=== PATIENT | female | born 1990 | race Caucasian/White ===

== ENCOUNTER 2019-07-18 18:55 | Emergency (ER) | payer BC ==
[2019-07-18] MEDS: LIDOCAINE/MYLANTA 40 ML BTL PO (20:52)
[2019-07-18 20:56] LABS: ADD UMIC YES; UR ASCORBIC ACID NEGATIVE (NEGATIVE); UR BACTERIA MODERATE /HPF (NONE SEEN); UR BILIRUBIN (Dip) NEGATIVE (NEGATIVE); UR BLOOD (Dip) NEGATIVE (NEGATIVE); UR CLARITY SLIGHTLY CLOUDY (CLEAR); UR COLOR STRAW (YELLOW); UR GLUCOSE (Dip) NEGATIVE (NEGATIVE); UR KETONES (Dip) NEGATIVE (NEGATIVE); UR LEUKOCYTE ESTERASE (Dip) 2+ Leu/ul (NEGATIVE); UR NITRITE (Dip) NEGATIVE (NEGATIVE); UR RBC 2 /HPF (0-5); UR SPECIFIC GRAVITY (Dip) 1.003 (1.003-1.030); UR SQUAMOUS EPITHELIAL CELL FEW /HPF (FEW); UR TOTAL PROTEIN (Dip) NEGATIVE (NEGATIVE); UR UROBILINOGEN (Dip) NEGATIVE (NEGATIVE); UR WBC 5 /HPF (0-5)
[2019-07-18 21:16] LABS: TROPONIN-I < 0.012 ng/ml (0.000-0.120)
== END 2019-07-18 22:44 | disposition home or self-care (01) ==
LOC: FTE 18:55
DX: R07.9 Chest pain, unspecified (principal); N30.90 Cystitis, unspecified without hematuria
CPT/HCPCS: 71046; 81001; 81025; 84484; 93005; 99285-25